=== PATIENT | female | born 2005 | race Caucasian/White ===

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

== ENCOUNTER → 2025-02-01 | Outpatient (CLI) | payer OTHER ==
[~2025-02-01] MED LIST changes: +ATIV1TAB10 PO; +FAMO20TA PO; +GABA-1171 PO; +HYDR-3713 PO; -LIDOCAINE 1% MDV 20ML VIAL As Ordered ONE; +LIDVISCBTL PO; +MAGICMW SSP; -MIDAZOLAM INJ 2MG/2ML VIAL As Ordered ONE; +ONDA-282 PO; -ceFAZolin 2 GM/D5W 50 ML IV BAG As Ordered ONE; -fentaNYL 100 MCG/2 ML INJECTION As Ordered ONE
== END ==
LOC: M PLARAD 09:08
PROVIDERS: ATTEND Internal Medicine Medical Oncology
DX: C81.90 Hodgkin lymphoma, unspecified, unspecified site (principal)
CPT/HCPCS: 78815; A9552

== ENCOUNTER → 2025-02-19 | Outpatient (CLI) | payer OTHER ==
[~2025-02-19] VITALS: Ht 162.6 cm; Wt 57.0 kg
[2025-02-19 09:30] VITALS: TEMP 97
[2025-02-19] MEDS: NS (Normal Saline) 0.9% 1,000 ML IV SCH (09:50)
[2025-02-19] MEDS: ceFAZolin SODIUM 2 GM in DEXTROSE 5% (D5W) ADV/MINI-BAG 50 ML IV ONE (11:16)
[2025-02-19] MEDS: MIDAZOLAM INJ 2MG/2ML VIAL IV PRN (11:50)
[2025-02-19] MEDS: fentaNYL 100 MCG/2 ML INJECTION IV PRN (11:50)
[2025-02-19] MEDS: LIDOCAINE 1% MDV 20ML VIAL SC ONE (12:06)
[2025-02-19 14:15] VITALS: BP 104/64; O2SAT 100
== END ==
LOC: M IRPRO 08:53
PROVIDERS: ATTEND Internal Medicine Medical Oncology
DX: C81.90 Hodgkin lymphoma, unspecified, unspecified site (principal)
CPT/HCPCS: 36590; 99152; J0690; J2250; J3010

== ENCOUNTER → 2025-07-13 | Outpatient (CLI) | payer OTHER ==
[~2025-07-13] MED LIST changes: +DOXY100T
== END ==
LOC: M PLARAD 08:17
PROVIDERS: ATTEND Internal Medicine Medical Oncology
DX: C81.98 Hodgkin lymphoma, unspecified, lymph nodes of multiple sites (principal)
CPT/HCPCS: 78815; A9552